=== PATIENT | female | born 1970 | race Caucasian/White ===

== ENCOUNTER 2017-05-19 00:22 | Emergency (ER) | payer OTHER ==
[~2017-05-19] VITALS: Ht 162.6 cm; Wt 96.2 kg
--- NOTE | 2017-05-19 01:00 | NUR ---
Pt is received alert, responsive as she came in c/o Sternal chest pain radiating to the left arm , worese after eating as EKG shows Noral Sinus Rhythm. Her care continue as she is been seen by MD as awaits MD orders.
[2017-05-19] MEDS ORDERED: OMEPRAZOLE CAP 20MG (01:05)
[2017-05-19 01:31] LABS: BASOPHILS % (AUTO) 0.4 % (0.0-2.0); EOSINOPHILS % (AUTO) 0.5 % (0.0-7.0); HEMATOCRIT 41.1 % (37-47); HEMOGLOBIN 14.3 G/DL (12.0-16.0); LYMPHOCYTES # (AUTO) 1.6 K/UL (0.8-4.8); LYMPHOCYTES % (AUTO) 21.4 % (20.5-51.5); MEAN CORPUSCULAR HEMOGLOBIN 30.1 UUG (27.0-31.0); MEAN CORPUSCULAR HGB CONC 35 g/dL (32.0-37.0); MEAN CORPUSCULAR VOLUME 86.8 FL (81.0-99.0); MONOCYTES # (AUTO) 0.5 K/UL (0.1-1.30); NEUTROPHILS # (AUTO) 5.3 K/UL (1.8-8.9); NEUTROPHILS % (AUTO) 70.7 % (38.5-71.5); PLATELET COUNT (AUTO) 272 K/UL (150-450); RED BLOOD CELL COUNT(AUTO) 4.73 MIL/UL (4.2-5.4); WHITE BLOOD COUNT (AUTO) 7.4 K/UL (4.0-11.2)
[2017-05-19 01:47] LABS: BILIRUBIN,DIRECT 0.1 mg/dL (0.0-0.2); BILIRUBIN,TOTAL 0.9 mg/dL (0.2-1.0); CREATININE 0.9 mg/dL (0.6-1.3); POTASSIUM 4.1 mmol/L (3.5-5.1); TOTAL PROTEIN, SERUM 7.6 g/dL (6.4-8.2)
--- NOTE | 2017-05-19 02:03 | NUR ---
Pt is resting with no new s/s off distress or c/o chest pain as she received Xanax 0.5mg po and ASA 162mg po as ordered. Her care continue as awaits test results.
--- NOTE | 2017-05-19 03:45 | NUR ---
Pt is resting in bed alert, responsive with call light in reach fall precautions in place and family at bedside. Xanax 0.5mg po, ASA 162mg PO effective for chest pain. Her care continue as she is been monitor.
--- NOTE | 2017-05-19 04:57 | NUR ---
Pt remain alert, responsive as Troponin x2 is Negative. Her care continue while monitor.
[2017-05-19 05:01] VITALS: BP 108/57
--- NOTE | 2017-05-19 05:01 | NUR ---
Pt is been discharge to home after discahgre instructions and Perscription off Alprazolam 0.25mg po Q8hrs as needed and she remain stable.
== END 2017-05-19 05:15 | disposition home or self-care (01) ==
LOC: ER 00:28
DX: R07.9 Chest pain, unspecified (principal); F41.9 Anxiety disorder, unspecified; R06.00 Dyspnea, unspecified; K21.9 Gastro-esophageal reflux disease without esophagitis
CPT/HCPCS: 36415; 70030-TC; 71010; 85025; 93005; A4663

== ENCOUNTER 2020-03-03 14:21 | Emergency (ER) | payer MEDICAID, OTHER ==
[~2020-03-03] VITALS: Ht 160 cm; Wt 99.8 kg
[~2020-03-03 14:21] MED LIST: OMEPRAZOLE CAP 20MG
[2020-03-03] MEDS ORDERED: MAG HYDROX/AL HYDROX/SIMETH 30 ML LIQUID UDC ONE (14:43)
[2020-03-03] MEDS ORDERED: LIDOCAINE VISCUS 2% 15 ML UDC ONE (14:44)
[2020-03-03] MEDS ORDERED: LIDOCAINE VISCUS 2% 15 ML UDC MM ONE (14:45)
[2020-03-03] MEDS ORDERED: MAG HYDROX/AL HYDROX/SIMETH 30 ML LIQUID UDC PO ONE (14:45)
[2020-03-03 14:54] LABS: BASOPHILS # (AUTO) 0.1 K/uL (0.0-8.0); BASOPHILS % (AUTO) 1.1 % (0.0-2.0); EOSINOPHILS % (AUTO) 0.6 % (0.0-7.0); HEMATOCRIT 42.3 % (31.2-41.9); HEMOGLOBIN 14.4 g/dL (10.9-14.3); LYMPHOCYTES # (AUTO) 1.9 K/uL (20.0-40.0); LYMPHOCYTES % (AUTO) 32.7 % (20.5-51.5); MEAN CORPUSCULAR HGB CONC 34 g/dL (32.3-35.6); MEAN CORPUSCULAR VOLUME 87.9 fL (75.5-95.3); MONOCYTES # (AUTO) 0.4 K/uL (2.0-10.0); MONOCYTES % (AUTO) 7.1 % (0.0-11.0); NEUTROPHILS # (AUTO) 3.3 K/uL (1.8-8.9); NEUTROPHILS % (AUTO) 58.5 % (38.5-71.5); PLATELET COUNT (AUTO) 266 K/uL (179-408); RED BLOOD CELL COUNT(AUTO) 4.81 MIL/uL (3.63-4.92); WHITE BLOOD COUNT (AUTO) 5.7 K/uL (3.8-11.8)
[2020-03-03 14:58] LABS: CREATININE 0.9 mg/dL (0.6-1.3); POTASSIUM 4.4 mmol/L (3.5-5.1)
[2020-03-03 15:00] LABS: *URINE HCG, QUAL NEGATIVE (NEGATIVE)
[2020-03-03 15:04] LABS: BILIRUBIN,DIRECT 0.2 mg/dL (0.0-0.2); BILIRUBIN,TOTAL 1.7 mg/dL (0.2-1.0); TOTAL PROTEIN, SERUM 7.6 g/dL (6.4-8.2)
--- NOTE | 2020-03-03 15:33 | NUR ---
Pt states feeling better and no N/V at this time.
--- NOTE | 2020-03-03 15:39 | NUR ---
Patient discharged to home in stable condition. Written and verbal after care instructions given. Patient verbalizes understanding of instructions. Stressed follow up or return to ER for worsening s/s.
[2020-03-03 15:40] VITALS: BP 133/70
== END 2020-03-03 15:45 | disposition home or self-care (01) ==
LOC: ER 14:21
DX: K29.70 Gastritis, unspecified, without bleeding (principal); K21.9 Gastro-esophageal reflux disease without esophagitis; Z79.899 Other long term (current) drug therapy
CPT/HCPCS: 36415; 83690; 84703; 85025; A4663

== ENCOUNTER 2022-03-31 02:28 | Emergency (ER) | payer MEDICAID ==
[~2022-03-31] VITALS: Ht 162.6 cm; Wt 95.3 kg
--- NOTE | 2022-03-31 03:01 | NUR ---
pt in room 4a ambuated with steady gait, c/o right arm pain says she fell did not hit head or knock out.
--- NOTE | 2022-03-31 03:42 | NUR ---
Dr. Waite at bedside for MSE.
[2022-03-31] MEDS ORDERED: OXYC-128 PO (04:51)
[2022-03-31 05:17] VITALS: BP 130/60
== END 2022-03-31 05:18 | disposition home or self-care (01) ==
LOC: ER 02:49
DX: S60.221A Contusion of right hand, initial encounter (principal); S50.11XA Contusion of right forearm, initial encounter; W01.0XXA Fall on same level from slipping, tripping and stumbling without subsequent striking against object, initial encounter; Y92.89 Other specified places as the place of occurrence of the external cause
CPT/HCPCS: 73090; 73130; A4663